=== PATIENT | male | born 1985 | race Caucasian/White ===

== ENCOUNTER 2022-09-27 11:53 | Emergency (ER) | payer MEDICAID, SELFPAY ==
[2022-09-27 12:10] VITALS: BP 128/83; PULSE 80; RESP 14; TEMP 36.6; O2SAT 96
--- NOTE | 2022-09-27 12:30 | DI.RAD_ITS ---
Exam(s) XR ANKLE RT COMPLETE EXAM: XR ANKLE RT COMPLETE CLINICAL HISTORY: fall lateral ankle pain. TECHNIQUE: 2D digital imaging was performed. COMPARISON: No exams were available for comparison FINDINGS: 3 views There is soft tissue swelling laterally but no evidence of fracture or widening of the ankle mortise. Talar dome unremarkable. No degenerative changes. No osseous tarsal coalition. IMPRESSION: Soft tissue swelling but no acute fracture evident. DATA REPOSITORY: RADIATION DOSE DELIVERED:
--- NOTE | 2022-09-27 13:27 | ED.GENADUL_ITS ---
Discharge Plan Disposition Patient Disposition: Home Discharge Details Clinical Impression: Right ankle sprain Primary Care Provider: Carrie,Local ED Provider: Douglas Rowe Home Meds and New Rx's Prescriptions: Continued multivitamin Tablet 1 tab PO DAILY vitamin B complex Tablet 1 tab PO DAILY Discharge Instructions Instructions: Ankle Sprain (ED) Additional Instructions: You may continue to use [id number] pain medication as needed. Please use the provided brace for the next 2 to 4 weeks and after crutch use for 2 to 3 days please increase activity as tolerated. If not improving in the next couple weeks please follow-up with your primary care provider for reassessment. Referrals: Primary Care Provider [Outside] - 2 weeks (If not improving) Discharge Data Discharge Date/Time-TO BE ENTERED AT DEPARTURE: 09/27/22 14:32 Medical Decision Making Patient presenting to the emergency department with chief complaint of right ankle injury. Patient states that he accidentally stepped abnormally and twisted his right ankle. He states significant lateral pain and discomfort with inability to weight-bear on ankle. Patient denies any other injury or trauma. Does state that he had a minor injury to the same area a couple months ago which fully improved until today. Physical exam shows significant tenderness to right lateral malleolus with swelling to the same area. Exam is otherwise unremarkable except for painful range of motion which is expected, no foot tenderness normal vascular and sensory exam. We will plan on perform radiological imaging to rule out distal fibular fracture. Patient denies any need for pain medication pending results. Reviewed radiological imaging and radiologist interpretation that shows no acute findings. Patient placed on crutches and lace up ankle brace with referral to primary care provider for recheck in 2 weeks if not improving. After discussion of diagnosis and plan of care patient has no further needs, questions, or concerns and states clear understanding to return to the emergency department for any worsening symptoms. This documentation was generated using Dat[employer] dictation system, please disregard any oddities of phrase or misspellings. Imaging Data Radiologic Study: Imaging: X-Ray Radiologist's impression: Exam(s) XR ANKLE RT COMPLETE EXAM: XR ANKLE RT COMPLETE CLINICAL HISTORY: fall lateral ankle pain. TECHNIQUE: 2D digital imaging was performed. COMPARISON: No exams were available for comparison FINDINGS: 3 views There is soft tissue swelling laterally but no evidence of fracture or widening of the ankle mortise. Talar dome unremarkable. No degenerative changes. No osseous tarsal coalition. IMPRESSION: Soft tissue swelling but no acute fracture evident. HPI General Mode of arrival: ambulatory . Date/Time Provider Initiated Documentation: 09/27/22 12:29 . Limitations to Documentation: no limitations . Information obtained by: patient . History of Present Illness 37 year old M presents to the emergency department with the chief complaint of Right ankle injury, described as moderate, with intensity rated at 6. Quality is described as aching, and is localized to the right and lower extremity. Patient started experiencing this hour(s) (1) and it has been constant. No relieving factors improve symptom(s), Movement worsens symptoms . Patient notes no other symptoms.. Patient did receive the following treatments prior to arrival, NSAID Related Data Home Medications Medication Instructions Recorded Confirmed multivitamin 1 tab PO DAILY 09/27/22 09/27/22 vitamin B complex 1 tab PO DAILY 09/27/22 09/27/22 Allergies Allergy/AdvReac Type Severity Reaction Status Date / Time No Known Allergies Allergy Unverified 09/27/22 12:15 General Stated Complaint: Orthopedic ANDERSON: 4 Review of Systems Narrative: 6 systems reviewed and unremarkable except what is marked below. Musculoskeletal Musculoskeletal: Reports as per HPI, Reports arthralgias, Reports joint swelling, Reports limited range of motion, Denies numbness and Denies tingling Integumentary/Breasts Skin/Breast: Denies unusual bruising and Denies wounds Neurologic Neurologic: Denies numbness and Denies tingling PFSH All Active Problems (Updated 09/27/22 @ 13:33 by Douglas Rowe NP) Right ankle sprain (Acute) Social History Smoking risk assessment performed?: No Exam Const General: cooperative, no acute distress and not ill appearing Orientation: alert, awake and oriented x3 HENMT Mouth: moist mucous membranes Resp Effort & Inspection: normal respiratory effort, able to speak in complete sentences and no respiratory distress Cardio Rate: regular rate Rhythm: regular rhythm Pulses: normal peripheral pulses Skin General skin exam: no rashes or lesions noted Neuro General: patient alert, patient awake, patient oriented x3, moves all extremities and no focal motor deficits Sensory Exam: no sensory deficits noted Extrem General: normal exam except as noted Right lower extremity: ankle Details: tenderness Location: of the lateral malleolus and anterolaterally, swelling Details: laterally, normal ROM and abnormal ROM Details: pain with active ROM and with range as follows (full); no abrasions, no lacerations, no crepitus and no penetrating wound and foot Details: toes with normal ROM, vascular exam Details: dorsalis pedis pulse present, posterior tibial pulse present and normal capillary refill and motor- sensory exam Details: two point discrimination normal and light-touch normal; no tenderness and no ecchymosis Course Vital Signs Vital signs: Vital Signs Temperature 36.6 C 09/27/22 12:10 Pulse 80 09/27/22 12:10 Respiratory Rate 14 09/27/22 12:10 Blood Pressure 128/83 09/27/22 12:10 Pulse Oximetry 96 09/27/22 12:10 Temperature 36.6 C 09/27/22 12:10 Temperature Source Oral 09/27/22 12:10 Pulse 80 09/27/22 12:10 Respiratory Rate 14 09/27/22 12:10 Respiratory Effort Normal 09/27/22 12:17 Blood Pressure 128/83 09/27/22 12:10 Blood Pressure Position Sitting 09/27/22 12:10 Pulse Oximetry 96 09/27/22 12:10 Oxygen Delivery Method Room Air 09/27/22 12:10 Oxygen Flow Rate 0 09/27/22 12:10 Pain Level 6 09/27/22 12:10
[2022-09-27 14:21] VITALS: BP 123/83; PULSE 68; RESP 18; TEMP 37; O2SAT 95
== END 2022-09-27 14:32 | disposition home or self-care (01) ==
PROVIDERS: Emergency Provider Nurse Practitioner Family
DX: S93.401A Sprain of unspecified ligament of right ankle, initial encounter (principal); X50.1XXA Overexertion from prolonged static or awkward postures, initial encounter
CPT/HCPCS: 29515; 99282; 73610; 99283

== ENCOUNTER 2022-10-22 09:32 | Outpatient (REF) | payer MEDICAID, SELFPAY ==
[2022-10-22 16:04] LABS: HCT 45.3 % (40.0-50.0); HGB 15.4 g/dL (13.5-17.5); MCH 30.6 pg (27.0-33.0); MCV 90 fL (80-95); MPV 10.9 fL (8.0-11.0); Platelet Count 323 10^3/uL (130-400); RBC 5.04 10^6/uL (4.36-5.78); RDW 12.5 % (11.8-14.1); RDW-SD 41.2 fL; WBC 8.18 10^3/uL (4.4-10.8)
[2022-10-22 16:58] LABS: ALT 41 U/L (16-63); AST 28 U/L (15-37); Albumin 4.3 g/dL (3.4-5.0); Alkaline Phosphatase 90 U/L (46-116); Anion Gap 10.4 mmol/L (3-11); BUN 13 mg/dL (7-18); Bilirubin, Total 0.5 mg/dL (0.2-1.0); CO2 26.6 mmol/L (21.0-32.0); CREATININE 0.8 mg/dL (0.70-1.30); Calcium 9.6 mg/dL (8.5-10.1); Calculated LDL 141 mg/dL (<100); Chloride 104 mmol/L (98-107); Cholesterol 199 mg/dL (<200); Estimated GFR 118.36 (mL/min/1.73m2); Glucose 98 mg/dL (74-106); HDL Cholesterol 45 mg/dL (40-60); Potassium 4.9 mmol/L (3.5-5.1); Sodium 141 mmol/L (136-145); TSH (W/Ref FT4) 1.59 uIU/mL (0.36-3.74); Total Protein 7.5 g/dL (6.4-8.2); Triglyceride 68 mg/dL (<150)
== END 2022-10-22 09:33 | disposition home or self-care (01) ==
LOC: NCHCN 09:32
PROVIDERS: PCP Family Medicine; Visit Provider Family Medicine
DX: Z00.00 Encounter for general adult medical examination without abnormal findings (principal); F41.8 Other specified anxiety disorders
CPT/HCPCS: 80053; 80061; 85027; 84443

== ENCOUNTER 2023-03-04 13:44 | Emergency (ER) | payer MEDICAID, SELFPAY ==
[2023-03-04 13:47] VITALS: BP 109/82; PULSE 78; RESP 20; TEMP 37.4; O2SAT 97
[2023-03-04] MEDS: Lidocaine 2% Jelly 6 ML SYR TP (14:18)
[2023-03-04 14:29] LABS: Abs Immature Grans 0.03 10^3/uL (0.0-0.06); Absolute Basophil Count 0.05 10^3/uL (0.0-0.2); Absolute Eosinophil Count 0.13 10^3/uL (0.0-0.7); Absolute Lymphocyte Count 1.98 10^3/uL (1.2-3.4); Absolute Monocyte Count 0.54 10^3/uL (0.1-0.8); Absolute Neutrophil Count 10.14 10^3/uL (1.2-6.7); Basophils % 0.4; HCT 44.9 % (40.0-50.0); HGB 15.6 g/dL (13.5-17.5); Immature Grans % 0.2; Lymphocytes % 15.4; MCH 30.4 pg (27.0-33.0); MCHC 34.7 % (32.0-36.0); MCV 87 fL (80-95); MPV 9.1 fL (8.0-11.0); Monocytes % 4.2; Neutrophils % 78.8; Platelet Count 332 10^3/uL (130-400); RBC 5.14 10^6/uL (4.36-5.78); RDW-SD 38.9 fL; WBC 12.87 10^3/uL (4.4-10.8)
--- NOTE | 2023-03-04 14:32 | ED.GENADUL_ITS ---
Discharge Plan Disposition Patient Disposition: Home Condition: Good Discharge Details Clinical Impression: Rectal bleeding, Hemorrhoid Primary Care Provider: Lakhwinder Marin ED Provider: Merritt Albright Home Meds and New Rx's Prescriptions: New hydrocortisone 2.5 % cream 1 applic topical TID Qty: 20 0RF Rx Instructions: apply to rectum lidocaine 5 % ointment 1 applic topical TID Qty: 30 0RF Rx Instructions: apply to rectum No Action multivitamin Tablet 1 tab PO DAILY vitamin B complex Tablet 1 tab PO DAILY Discharge Instructions Instructions: Rectal Bleeding (ED), Sitz Bath (DC) Additional Instructions: continue to apply medications as prescribed if you are unable to get bleeding to stop you can you return to the emergency department please follow up at 9am tomorrow in surgery clinic Referrals: Courtney Hilton MD [ [facility] STAFF PHYSICIAN] - Medical Decision Making Emergent evaluation of rectal bleeding. Initial differential includes hemorrhoidal bleeding, anal fissure, lower GI bleeding less likely. On examination the patient is hemodynamically stable and is not actively bleeding. He has a very large hemorrhoid that is the source of his bleeding. Topical lidocaine was applied in the emergency department. 2:20 PM discussed with general surgery. They have a cancellation in clinic at 9 AM tomorrow and she will be happy to see the patient at that time 2:30 PM CBC reviewed, hemoglobin and hematocrit are stable. Patient is stable for discharge home with topical lidocaine and hydrocortisone. He has general surgery clinic follow-up tomorrow. Strict return precautions advised. Medical Records Medical records reviewed: Yes I reviewed the patient's medical records. Lab Data Lab results reviewed: Yes I reviewed the patient's lab results. HPI General Date/Time Provider Initiated Documentation: 03/04/23 13:45 . Limitations to Documentation: no limitations . Information obtained by: patient . HPI Narrative: 37-year-old gentleman without significant past medical history presents for evaluation of rectal bleeding. He reports onset this morning after a bowel movement. He reports that he had a bowel movement this was normal, this was not painful. He states that there was blood in the toilet bowl. He states that he then got dressed but bled through his underwear. He changed close and started driving to work. By the time he got to work he had blood through his close and onto the car seat. He denies any abdominal pain or cramping. Denies any weakness, shortness of breath or chest pain. He denies any pain in his rectum. He reports that he has a history of hemorrhoids and has intermittently had bleeding since the age of 18. Related Data Home Medications Medication Instructions Recorded Confirmed multivitamin 1 tab PO DAILY 09/27/22 03/04/23 vitamin B complex 1 tab PO DAILY 09/27/22 03/04/23 hydrocortisone 2.5 % topical cream 1 applic topical TID #20 grams 03/04/23 lidocaine 5 % topical ointment 1 applic topical TID #30 grams 03/04/23 Previous Rx's Medication Instructions Recorded hydrocortisone 2.5 % topical cream 1 applic topical TID #20 grams 03/04/23 lidocaine 5 % topical ointment 1 applic topical TID #30 grams 03/04/23 Allergies Allergy/AdvReac Type Severity Reaction Status Date / Time No Known Allergies Allergy Unverified 03/04/23 13:52 General Stated Complaint: GI Bleed ANDERSON: 3 PFSH All Active Problems Hemorrhoid (Acute) Rectal bleeding (Acute) Social History Smoking/Tobacco Use Status: Never Smoking risk assessment performed?: Yes Alcohol Intake: never Drug use: Never Substance use type: does not use Do you feel safe at home: Yes Do you feel safe in your relationship?: Yes Exam Narrative Exam Narrative: Review of Systems: All systems reviewed & are unremarkable except as noted in HPI and below Exam: Const: Well-nourished, Well-developed, appearing stated age HEENT: NACT / Eyes: PERRL, no conjunctival injection, and symmetrical lids / EARS Atraumatic external nose and ears / MOUTH Moist MM / NECK: Symmetric, trachea midline, No thyromegaly / THROAT oropharynx clear CVS: RRR, No murmurs or gallops. Peripheral pulses 2+ and equal in all extremities. Brisk capillary refill in all extremities. RESP: Unlabored respiratory effort, Clear to auscultation bilaterally. No wheezes rales or rhonchi GI: Soft, Nontender/Nondistended, No hepatosplenomegaly. No guarding or rebound. : Rectal examination with several external hemorrhoids, 1 at 4:00 is very large, nontender, and there is some ulceration on the medial aspect with oozing, no active bleeding MSK: Extremities w/o deformity or TTP, No cyanosis or clubbing, full range of mo tion Skin: Warm, Dry. No rashes or lesions. 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 Sensation grossly intact, no focal neurologic deficits. Psych: (AAO) x3. Appropriate mood and affect Course Vital Signs Vital signs: Vital Signs Temperature 37.4 C 03/04/23 13:47 Pulse 78 03/04/23 13:47 Respiratory Rate 20 03/04/23 13:47 Blood Pressure 109/82 03/04/23 13:47 Pulse Oximetry 97 03/04/23 13:47 Temperature 37.4 C 03/04/23 13:47 Temperature Source Skin 03/04/23 13:47 Pulse 78 03/04/23 13:47 Respiratory Rate 20 03/04/23 13:47 Respiratory Effort Normal, Non-Labored 03/04/23 14:19 Blood Pressure 109/82 03/04/23 13:47 Blood Pressure Position Sitting 03/04/23 13:47 Pulse Oximetry 97 03/04/23 13:47 Oxygen Delivery Method Room Air 03/04/23 13:47 Oxygen Flow Rate 0 03/04/23 13:47 Pain Level 3 03/04/23 13:47 Lab/Test Results Lab/Test Results: Laboratory Tests Range/Units 03/04/23 03/04/23 13:54 14:20 WBC (4.4-10.8) 10^3/uL 12.87 H RBC (4.36-5.78) 10^6/uL 5.14 Hgb (13.5-17.5) g/dL 15.6 Hct (40.0-50.0) % 44.9 MCV (80-95) fL 87 MCH (27.0-33.0) pg 30.4 MCHC (32.0-36.0) % 34.7 RDW (11.8-14.1) % 12.0 Plt Count (130-400) 10^3/uL 332 MPV (8.0-11.0) fL 9.1 Immature Gran % 0.2 Neutrophils % 78.8 Lymphocytes % 15.4 Monocytes % 4.2 Eosinophils % 1.0 Basophils % 0.4 Nucleated RBC % (0.0-0.3) % 0.0 Absolute Neutrophils (1.2-6.7) 10^3/uL 10.14 H Absolute Lymphocytes (1.2-3.4) 10^3/uL 1.98 Absolute Monocytes (0.1-0.8) 10^3/uL 0.54 Absolute Eosinophils (0.0-0.7) 10^3/uL 0.13 Absolute Basophils (0.0-0.2) 10^3/uL 0.05 Sodium Cancelled Potassium Cancelled Chloride Cancelled Carbon Dioxide Cancelled Anion Gap Cancelled BUN Cancelled Creatinine Cancelled Est GFR (CKD-EPI 2020) Cancelled Glucose Cancelled Calcium Cancelled Total Bilirubin Cancelled AST Cancelled ALT Cancelled Alkaline Phosphatase Cancelled Total Protein Cancelled Albumin Cancelled Patient ABO/Rh Cancelled
[2023-03-04 14:41] LABS: Prothrombin Time 10.4 sec (9.1-11.1)
--- NOTE | 2023-03-04 15:02 | NUR.NOTE ---
Faxed referral to General Surgery for a visit this week.
== END 2023-03-04 16:10 | disposition home or self-care (01) ==
PROVIDERS: Emergency Provider Emergency Medicine; PCP Family Medicine
DX: K62.5 Hemorrhage of anus and rectum (principal); K64.4 Residual hemorrhoidal skin tags
CPT/HCPCS: 80053; 86900; 86901; 99282; 85025; 85610

== ENCOUNTER 2023-03-08 01:30 | Outpatient (CLI) | payer MEDICAID, SELFPAY ==
--- NOTE | 2023-03-08 | DI.RAD_ITS ---
Exam(s) XR KNEE RT 3V AP,LAT,CALLIE EXAM: XR KNEE RT 3V AP,LAT,CALLIE CLINICAL HISTORY: RT KNEE JOINT PAIN, M25.561. TECHNIQUE: 2D digital imaging was performed. COMPARISON: No exams were available for comparison FINDINGS: 3 views No evidence of fracture or joint effusion. Bone density normal. No osseous lesions. No joint space narrowing. No osteochondral defects. No degenerative changes IMPRESSION: No significant osseous findings in the right knee. No joint effusion seen DATA REPOSITORY: RADIATION DOSE DELIVERED:
== END 2023-03-08 01:50 ==
LOC: DI 01:30
PROVIDERS: PCP Family Medicine; Visit Provider Nurse Practitioner Family
DX: M25.561 Pain in right knee (principal)
CPT/HCPCS: 73562

== ENCOUNTER 2023-03-20 06:09 | Day surgery (SDC) | payer MEDICAID, SELFPAY ==
[2023-03-20] VITALS (9 sets, daily range): BP systolic 106–119; BP diastolic 69–80; PULSE 61–80; RESP 12–18; TEMP 36.4–36.7; O2SAT 94–98; BMI 25.2
[2023-03-20] MEDS: Lactated Ringers 1,000 ML 80 ML IV (06:50)
[2023-03-20] MEDS: Gabapentin 300 MG CAP 600 MG PO (06:55)
[2023-03-20] MEDS: Acetaminophen 500 MG TAB 1000 MG PO (06:56)
[2023-03-20] MEDS: Celecoxib 200 MG CAP PO (06:56)
--- NOTE | 2023-03-20 07:00 | ANES.PREOP_ITS ---
General Info Date of Service Date Performed: 03/20/23 Height: 6 ft 1 in Weight: 86.6 kg Body Mass Index (BMI): 25.2 Surgical Procedure: Operation Date: 03/20/23 07:40 Proposed Procedure Side Surgeon p Exam Under Anesthesia Courtney Hilton MD s Hemorrhoidectomy, Internal & External Courtney Hilton MD Meds Allergies and Home Medications Allergies Allergy/AdvReac Type Severity Reaction Status Date / Time No Known Allergies Allergy Unverified 03/19/23 10:34 Home Medication Medication Instructions Recorded multivitamin 1 tab PO DAILY 09/27/22 vitamin B complex 1 tab PO DAILY 09/27/22 hydrocortisone 2.5 % topical cream 1 applic topical TID #20 grams 03/04/23 lidocaine 5 % topical ointment 1 applic topical TID #30 grams 03/04/23 Current Visit Medications: Current Medications Generic Name Dose Route Start Last Admin Trade Name Freq PRN Reason Stop Dose Admin Acetaminophen 1,000 mg 03/20/23 06:00 03/20/23 06:56 Acetaminophen 500 Mg Tab PO 04/18/23 23:59 1,000 mg PREOP EMMANUEL Administration Celecoxib 200 mg 03/20/23 06:00 03/20/23 06:56 Celecoxib 200 Mg Cap PO 04/18/23 23:59 200 mg PREOP EMMANUEL Administration Gabapentin 600 mg 03/20/23 06:00 03/20/23 06:55 Gabapentin 300 Mg Cap PO 04/18/23 23:59 600 mg PREOP EMMANUEL Administration Ringer's Solution 1,000 mls @ 80 mls/hr 03/20/23 06:00 03/20/23 06:50 IV 04/18/23 23:59 80 mls/hr INFUSION EMMANUEL Administration Metronidazole 750 mg/ Device 150 mls @ 150 mls/hr 03/20/23 06:00 IVPB 03/20/23 23:59 PREOP EMMANUEL IV Miscellaneous Supplies 1 each 03/20/23 06:00 Iv Access IV 04/18/23 23:59 DIRECTED EMMANUEL Sodium Chloride 0 ml 03/20/23 06:00 Normal Saline Flush 10 Ml Syr IV 04/18/23 23:59 PRN PRN Sodium Chloride 0 ml 03/20/23 06:00 Normal Saline 10 Ml Vial IJ 04/18/23 23:59 DIRECTED PRN Sterile Water 0 ml 03/20/23 06:00 Water,Injection,Sterile 10 Ml Vial IJ 04/18/23 23:59 DIRECTED PRN PFSH Active Problems Active Problems: Problem Status Onset Code Hemorrhoid K64.9 Rectal bleeding K62.5 Tobacco Smoking/Tobacco Use Status: Current every day Tobacco Type: cigarettes Alcohol Alcohol Intake: current Alcohol intake frequency: a few times a week Alcohol type: beer Substance Use Substance use: Never Substance use type: does not use Vital Signs and Lab Results Vital Signs Most Recent Vital Signs in EMR: Most Recent Vital Signs Temp Pulse Resp BP Pulse Ox 36.7 C 80 18 119/72 98 03/20/23 06:15 03/20/23 06:15 03/20/23 06:15 03/20/23 06:15 03/20/23 06:15 Lab Results Blood Type / Crossmatch: No Data to Display Complete Blood Count: White Blood Count 12.87 10^3/uL (4.4-10.8) H 03/04/23 14:20 Red Blood Count 5.14 10^6/uL (4.36-5.78) 03/04/23 14:20 Hemoglobin 15.6 g/dL (13.5-17.5) 03/04/23 14:20 Hematocrit 44.9 % (40.0-50.0) 03/04/23 14:20 Platelet Count 332 10^3/uL (130-400) 03/04/23 14:20 Complete Metabolic Panel: No Data to Display Liver Function Panel: No Data to Display Coagulation Panel: INR International Normalized Ratio 1.0 (0.9-1.1) 03/04/23 14:2 0 Prothrombin Time 10.4 sec (9.1-11.1) 03/04/23 14:20 Cardiac Panel: No Data to Display Arterial Blood Gas: No Data to Display Venous Blood Gas: No Data to Display Pancreas Panel: No Data to Display Thyroid Panel: No Data to Display Infectious Disease: No Data to Display Blood Cultures: No Data to Display Toxicology Panel: No Data to Display Anesthesia Assessment and Plan Anesthesia History Personal History: No History of General Anesthesia Family History: No Family History of Anesthesia Complications Exercise Tolerance Exercise Tolerance: Metabolic Equivalents>4 Cardiac & Pulmonary Exam Cardiac Exam: Normal S1/S2 Heart Sounds Pulmonary Exam: Clear Bilateral Breath Sounds Implantable Cardiac Device Does patient have a Pacemaker or an ICD?: No Airway Exam Known Difficult Airway: No Mallampati Class: 3 Mouth Opening: Narrow (< 3cm) Thyromental Distance: Greater than 3 cm Neck Range of Motion: Full ROM Neck Circumference: Normal Teeth Condition: Normal Dentition and Generalized Poor Dentition ASA Classification ASA Score: ASA 2 Emergency Case?: No NPO Status NPO Status: NPO Clears >2 hours, Solids >8 hours Anesthesia Plan Resuscitation Status: Full Code Anesthesia Technique: General Anesthesia Airway Planned: Endotracheal Tube (Proneview) Monitors Used: Standard Monitors
--- NOTE | 2023-03-20 07:06 | W.PM.OP ---
Date of service: 03/20/23 Time of Service: 08:30 Operative Note Operative Note DATE OF PROCEDURE: 03/20/23 PRE-OP DIAGNOSIS: Internal Hemorrhoids and external hemorrhoids Prolapsed external hemorrhoids PROCEDURE: exam under anesthesia external hemorrhoidectomy SURGEON: Courtney Hilton CIVIL LABORATORY TECHNICIAN: Mellisa Del Rio Refer to Anesthesia Record ESTIMATED BLOOD LOSS: 20 PATHOLOGY: other (hemorrhoidal tissue) COMPLICATIONS: None Patient was transported to: PACU Patient's condition: stable Indications: Edgar is a pleasant 37-year-old gentleman who comes in today with bleeding hemorrhoid. He has had issues with bleeding hemorrhoids since he was 18 years old. He seems to eat a healthy diet from what he tells me. He does have loose stools in the mornings especially after drinking a couple coffee. He will sometimes have a second bowel movement in the evening which is more formed. He denies constipation. He denies having to bear down. We discussed the pathophysiology of hemorrhoids and the difference between internal and external hemorrhoids. I think unfortunately he would benefit from surgery and then exam under anesthesia with hemorrhoidectomy. I reviewed the procedure with him as well as the possible complications. We reviewed the fact that this is painful surgery and he will need to take at least 2 weeks off of work. After our discussion he seemed to had a good understanding of the procedure as well as the potential risks. Complications include but not limited to bleeding, infection, recurrence of hemorrhoids, injury to the rectus muscle. We will send the hemorrhoids off for pathology to rule out Crohn's proctitis. Findings: The patient had circumferential external hemorrhoids. They were Grade 2 and 3 Procedure Description: After informed consent was obtained the patient was taken to the Operating room and while on the [facility] he was placed under anesthesia and intubated. Once intubated he was placed on the operating table in a prone position. His buttocks were using tape on either side. Next a time out was done and the patients name, , allergies to medications, antibiotic given, procedure to be done were reviewed. Fire risk was assessed. Next the buttocks and birgit-anal area were prepped with iodine and draped in a standard fashion. Next exparel mixed 50/50 with bupivocaine was injected circumferentially around the rectum. A rectal retractor was then placed into the rectum. Grade 2 and 3 external hemorrhoids were identified circumferentially. The hemorrhoids were removed using a ligasure. The mucosal edges were re-approximated using 2-0 chromic. The retractor was removed. A digital exam was done to make sure the rectum was not too tight. The skin was cleaned and dried. An ABD was placed and secured with mesh panties. The patient was then placed on a gurney in a supine position and taken back to PACU. The patient tolerated the procedure well and there were no complications.
--- NOTE | 2023-03-20 07:10 | W.PM.DSUDISC ---
Date of service: 03/20/23 Time of Service: 11:32 Discharge Plan Disposition Patient Disposition: Home Condition: Stable Discharge Details Reason For Visit: internal and external hemorrhoidectomy Attending Provider: Courtney Hilton Primary Care Provider: Lakhwinder Marin Home Meds and New Rx's Prescriptions: New oxycodone 5 mg tablet 5 mg PO Q4H PRN7 Days Qty: 40 0RF lidocaine HCl 2 % jelly in applicator 1 applic topical TID PRNQty: 250 0RF ibuprofen 600 mg tablet 600 mg PO Q6H PRNQty: 90 0RF polyethylene glycol 3350 [ClearLax] 17 gram powder in packet 17 g PO DAILY Qty: 100 0RF Rx Instructions: take daily while on Pain medications Continued multivitamin Tablet 1 tab PO DAILY vitamin B complex Tablet 1 tab PO DAILY hydrocortisone 2.5 % cream 1 applic topical TID Qty: 20 0RF Rx Instructions: apply to rectum Discontinued lidocaine 5 % ointment 1 applic topical TID Qty: 30 0RF Rx Instructions: apply to rectum Discharge Instructions Instructions: Hemorrhoidectomy (DC) Additional Instructions: Activity at Home after surgery: 1. Make sure you walk outside at least 4 times per day 2. You should be able to climb a flight of stairs 3. No driving while in pain or taking pain medications 4. No strenuous activity or heavy lifting for 4 weeks Diet, Nutrition, & wound healin. Avoid alcohol until after you are recovered from your surgery 2. Make sure to eat plenty of lean protein (meat, fish, eggs, cottage cheese, beans) 3. Eat a variety of fruits and vegetables. Eat plenty of high fiber foods to avoid constipation. 4. Drink plenty of liquids to stay hydrated and avoid constipation Pain Medications: 1. Tylenol 650mg every 6 hours as needed and Ibuprofen 600 mg every 6 hours as needed. You may alternate between the 2 medications every 3 hours 2. If a narcotic has been prescribed take as directed only for breakthrough pain For Constipation: 1. Take Milk of Magnesia or MiraLax as needed for constipation Other: 1. You may shower daily. 2. Use sitz baths as needed for pain or you can sit in warm water Please call our office if you develop: 1. Fevers >101.5 2. Nausea or Vomiting 3. Worsening pain 4. Redness and thick discharge from the wounds If after hours please call the Hospital at and ask to speak to the on-call surgeon Stand Alone Forms: Anesthesia Discharge Juarez Zapata (DSU) Referrals: Courtney Hilton MD [ [facility] STAFF PHYSICIAN] - 04/02/23 8:00 am Activity:: Activity as Tolerated Diet:: high fiber Discharge Orders Discharge Orders: Discharge Order (Routine); Ordered 03/20/23 Ordered By: Courtney Hilton Discharge Data Discharge Date/Time-TO BE ENTERED AT DEPARTURE: 03/20/23 10:48 DS: Diagnosis Discharge Diagnosis (1) Hemorrhoid: Status: Acute Asessment and Plan: The patient is doing well post-op from their exam under anesthesia with internal and external hemorrhoidectomy surgery.? He is having no nausea or vomiting. He is tolerating liquids and a snack. The pt is not having any chest pain or SOB.? His pain is adequately controlled. He has been able to urinate.? ?HEENT:? no eye pain/drainage/redness/swelling. Mild sore throat ?Cardio- NSR, no chest pain, BP stable- see VS record ?Pulm: no sob or productive cough. No hemoptysis ?Incision- dressing is c/d/i w/ no excessive bleeding or drainage ?I discussed with the patient the findings at the time of surgery and the patient?s progress. ?We reviewed expectations at home; what the patient could expect for recovery time, and in the post-operative period.? We discussed the importance of walking to avoid blood clots and pneumonia.? We discussed and reviewed the patient's post-operative wound care and dressing needs.?? We reviewed their step-sebastian pain management plan, Rx called to the pharmacy of their choice.? We reviewed activity and limitations-see discharge instructions. We reviewed warning signs, and when to seek medical attention- see d/c instructions.?? Patient was given a postoperative follow-up appointment. Patient verbalized understanding of their postoperative instructions, how do to take care of themselves and their incision, and the pain management plan. Please see discharge instructions.? Patient discharged without me being able to see patient. Per nursing he was doing well. Pain was 2/10 Scant blood on ABD pad in underwear. I will call patient and check on him (2) Rectal bleeding: Status: Acute
--- NOTE | 2023-03-20 08:09 | HEM_PTH ---
PATIENT: Edgar Longoria LOC: [facility] U#:[id number] AGE/SX: 37/M ROOM: RE03/20/[address]: Courtney Hilton MD : 1985 BED: DIS: 03/20/2023 SPEC #: [id number] RECD: 03/20/23 12:50 STATUS: ONEIL REQ #: [id number] DENITA: 03/20/23 08:[address]: Courtney Hilton DEPT: Surgical Specimen RECD BY: Esmer Fontana ENTERED: 03/20/23 12:51 SP TYPE: Hem OTHR DR: Lakhwinder Marin Tissues: 1 - HEMORRHOIDS Procedures: GROSS AND MICRO LEVEL 3 Comments: [id number]
[2023-03-20] MEDS: Bupivacaine LIPOSOME/PF 133 MG/10 ML VIAL IJ (08:16)
[2023-03-20] MEDS: Bupivacaine 0.25% Pres-Free 30 ML VIAL (08:17)
--- NOTE | 2023-03-20 10:10 | W.ANESPOSTOP ---
Postoperative Evaluation Date, Time and Location Date Performed: 03/20/23 Time Performed: 09:30 Patient Location: PACU Vital Signs Most Recent Imported Vital Signs: Most Recent Vital Signs Temp Pulse Resp BP Pulse Ox 36.5 C 61 16 119/79 98 03/20/23 09:39 03/20/23 09:39 03/20/23 09:39 03/20/23 09:39 03/20/23 09:39 Pain Score Most Recent Pain Score: Most Recent Pain Score Pain Level 2 03/20/23 09:39 Assessment Mental Status: Awake (Alert & Oriented to Patient Baseline) Airway and Respiratory Function: Patent airway with normal (patient baseline) respiratory exam Cardiovascular Function: Hemodynamically Stable Hydration Status: Adequately Hydrated Nausea & Vomiting: No Nausea or Vomiting Pain: Pain is tolerable per patient Peripheral Nerve Block: Patient did not receive a nerve block
== END 2023-03-20 10:48 | disposition home or self-care (01) ==
PROVIDERS: PCP Family Medicine; Visit Provider Surgery
PROC: (CPT 46221; principal; 2023-03-20 07:30)
PROC: (CPT 46221; 2023-03-20 07:30)
DX: K64.2 Third degree hemorrhoids (principal); K62.5 Hemorrhage of anus and rectum; F17.210 Nicotine dependence, cigarettes, uncomplicated; K62.89 Other specified diseases of anus and rectum
CPT/HCPCS: 46221; 88304; J1100; J2001; J2250; J2405; J2704; J3010